=== PATIENT | female | born 1960 | race Caucasian/White ===

== ENCOUNTER 2022-01-29 08:00 | Outpatient (RCR) | payer OTHER, SELFPAY ==
--- NOTE | 2022-01-25 11:20 | HP.OTEVAL ---
Patient's Visit Information PREETHI MARTINEZ is a 61 year old F, referred to Occupational Therapy by ROEL Arndt, with a diagnosis of Laceration of left thumb. Date of Evaluation: 01/25/22 Occupational Therapist: Jen Madden, SCOOTER/Haile, CHT - Subjective Pt. is a 61 y/o female who works part-time at [employer]. She is right hand dominant. She cut her left thumb with box knife at work on 01-14-22, she is not using workmans comp. [facility] and [facility]. Her stitches were removed. She reported that she hit L thumb at work yesterday 01-24-22 and it opened back up. During the evaluation it was not seeping or bleeding. Pt. is motivated to return to [facility]. - ADLs Dressing: Bra Comments: fastener Comments: R handed dominant. She verbalized difficulty with donning bra clasp. She also has a horse that she cares for. - ROM Shoulder: B WFL Elbow: B WFL Forearm: B WFL Wrist: B WFL CMC: flexion R 10* L 3* MP: flexion R 35* L 40* IP: flexion R 60* L 35* ROM Comments: -35* extensor lag of IP L thumb. She can complete composite fist. - Strength Shoulder: good Elbow: good Forearm: good An/Syq 13 Nav/C2 Operator: R 50# Lateral Pinch: R 12# Tripod Pinch: R12# Tip-to-Tip Pinch: R 10# Strength Comments: Did not assess L outdoor adventure guides or pinch strength secondary to prevention of reopening laceration. - Sensation Thumb: L thumb past IP is numb Stereognosis: Normal - Right Kinesthesia: Normal - Right Proprioception: Normal - Right Sensation Comments: Pt. reports L thumb numbness distal to laceration proximal side ulnar side. Pt. reported all other fingers are normal. Assess L thumb sensation using [place] [employer] monofilament at a later date, secondary to numbness to S/OT touch. - Transfers Transfers: Pt. independent with functional mobility. - Quick DASH-Disab of Arm,Shoulder& Hand Quick DASH Score: 20.4525 - Goals Comment: splinting all day except for showers to decrease ext. lag Goal:Daily scar massage when approriate: Yes Comment: to massage around scar, not across until closed fully. Goal:No pain with affected hand use: Yes Goal:Full use of affected hand in daily activities including: Yes - Rehabilitation General Assessment: Pt. was referred to OT services for a laceration of left thumb, strain of extensor muscle, fascia and tendon by ROEL Alonso. Pt arrives 1 week and 4 day post injury and repair. pt demo with extensor lag of L thumb IP joint which causes mild difficulty with ADL tasks, IADL's, and work. Pt. would benefit from skilled OT services 1-2x week for 6 weeks -for custom orthosis, scar management, and exercises for increased extension of L thumb. therapy session was directly supervised and doc. reviewed and approved by Jen Madden OTR/L,CHT Rehabilitation Potential: Good - Anticipated Interventions Early Active Motion, A/AAROM/PROM, Strengthening, Scar Care, Massage, Wound Care, Modalities, Orthoses, Joint Protection/Energy Conservation, Ergonomic Education, Fine Motor Coord/Jose, Education re assistive Equipment, Education re Diagnosis, Education re Skin Care and Precautions, Education re Self Massage Techniques, Home Program Other Interventions: Suggested wearing gloves at work and when doing yard work, horse care to protect laceration site. - Visit Plan Frequency: 2x /Week Duration: 6 Weeks General Plan: Recommended wearing orthotic and protective glove for work. Wear orthotic all day remove for shower. Reviewed scar massage around laceration, not across as it is not closed. Just splint for now, provide extensor exercises at a later date. See pt. next week to assess orthotic needs. TEXT: Thank you for the opportunity to evaluate your patient. For Medicare and Medicare HMO plans, please review the plan of care and approve it. It will need to be FAXED BACK to us at [phone] for Medicare purposes. Please let me know if there are questions or concerns regarding this plan of care. Physician Signature: Date:
--- NOTE | 2022-07-09 13:28 | HP.OTDCNRP_ITS ---
PREETHI AMRTINEZ was seen in my office for initial evaluation on 01/25/22. The following Plan of Care was established for this patient: Initial Frequency: 2x /Week Initial Duration: 6 Weeks Plan: recommending pt. seek a 2nd opinion from a hand surgeon at [facility] Dr. Edmondson. Provided pt. with phone number. Anticipated Interventions: Early Active Motion, A/AAROM/PROM, Strengthening, Scar Care, Massage, Wound Care, Modalities, Orthoses, Joint Protection/Energy Conservation, Ergonomic Education, Fine Motor Coord/Jose, Education re assistive Equipment, Education re Diagnosis, Education re Skin Care and Precautions, Education re Self Massage Techniques, Home Program Other Interventions: Suggested wearing gloves at work and when doing yard work, horse care to protect laceration site. This patient was last seen in our office 01/29/22. Pertinent comments regarding their Occupational therapy will appear below: pt was seen for 2 OT session with laceration of thumb- pt did not return after 2nd visit due to limited extension of IP - pt was seeing hand surgeon. pt d/c At this point I will be discontinuing this patient from occupational therapy. I would be happy to see this patient again in the future if found appropriate by the physician. Thank you! Jen Madden, OTR/L, CHT
== END 2022-01-29 19:00 | disposition home or self-care (01) ==
LOC: OT 08:00
PROVIDERS: Referring Provider Physician Assistant Surgical; Visit Provider Physician Assistant Surgical
DX: S61.012D Laceration without foreign body of left thumb without damage to nail, subsequent encounter (principal); S66.212D Strain of extensor muscle, fascia and tendon of left thumb at wrist and hand level, subsequent encounter; X58.XXXD Exposure to other specified factors, subsequent encounter
CPT/HCPCS: 97165; 97530; 97760

== ENCOUNTER 2022-04-02 10:00 | Outpatient (RCR) | payer OTHER, SELFPAY ==
--- NOTE | 2022-03-19 15:56 | HP.OTEVAL ---
Patient's Visit Information PREETHI MARTINEZ is a 61 year old F, referred to Occupational Therapy by Dr. Kvng Edmondson DO, with a diagnosis of EPL laceration. Date of Evaluation: 03/19/22 Occupational Therapist: Jen Madden, OTElsa/Haile, CHT - Subjective This 61 year old female was seen for OT eval with dx of left EPL laceration zone 3. 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 pt underwent sx on February 12, 2022. after sx surgical cast on pt states she was in this for 2 weeks and than new cast and was on until March 08 and now is here for therapy eval. pt is 5 weeks s/p pt arrives without splint on or brace that was given by her dr. pt states she does protect the wound with a bandage when she is working-. Pt C-9 approval from workers comp.- and therapy approved was 03-11-22, received order for approved therapy on 03-14-22 - pts availability to be seen was 03-19-22. - Pain left thumb 1 Pain Intensity Range: 3 - Objective pt demo with open wound 1cmx.5cm in size - ROM CMC: right 0 left 0 MP: right -5/60 left -20/50 IP: right 0/60 left -10/30 ROM Comments: pt demo good ROM from her zone III EPL repair. all other ROM is WNL - Strength Heater Planer Operator: right 55# left NT Lateral Pinch: right 8# left NT Tripod Pinch: right 8# left NT - Sensation Sensation Comments: pt states over incision area slightly numb but able to feel ( states its better) - Quick DASH-Disab of Arm,Shoulder& Hand Quick DASH Score: 35.0000 - Goals Goal:100% adherence to protocol: Yes Comment: EPL zone III protocol Goal:Daily scar massage when approriate: Yes Goal:ROM equal to unaffected hand: Yes Goal:Heater Planer Operator/Pinch strength at least 75% of unaffected hand: Yes Goal:No pain with affected hand use: Yes Goal:Full use of affected hand in daily activities including: Yes Goal:Decrease scar hypersensitivity: Yes - Rehabilitation General Assessment: pt arrives to OT 5 weeks s/p from a EPL repair. Pt demo with open wound limited ROM and use of left hand with ADLs and IADls. Pt has open wound on dorsal side of thumb- pt limited with use of left hand with ADLs and IADLs- pt would benefit from skilled OT services 2-3x week for 6 weeks. Today therapist ed. pt on wound mtg and cleaning followed with scar mobilization and AROM. pt demo understanding and agree to POC. Rehabilitation Potential: Good - Anticipated Interventions A/AAROM/PROM, Strengthening, Scar Care, Desensitization, Wound Care, Modalities, Orthoses, Joint Protection/Energy Conservation, Fine Motor Coord/Jose, Education re assistive Equipment, Education re Diagnosis - Visit Plan Frequency: 2-3x /Week Duration: 6 Weeks TEXT: Thank you for the opportunity to evaluate your patient. For Medicare and Medicare HMO plans, please review the plan of care and approve it. It will need to be FAXED BACK to us at [phone] for Medicare purposes. Please let me know if there are questions or concerns regarding this plan of care. Physician Signature: Date:
--- NOTE | 2022-07-16 16:58 | HP.OTDCSUM_ITS ---
It has been my pleasure to treat PREETHI MARTINEZ under orders from Dr. Kvng Edmondson, DO, for the diagnosis of EPL laceration for a total of 4 visit(s). Please see the following information for a summary of their discharge status. Objective/Function: IP flexion 40*. opposition. RA 60. noted IP ext is N but noted scar adhesions with movement. wound size is shrinking. 1cm in diameter. 1/2 cm length x width Patient Goals: Regain Mobility, Regain Strength, Use Hand/Wrist/Arm Normally Again Goal:100% adherence to protocol: Yes Goal:Daily scar massage when approriate: Yes Goal:ROM equal to unaffected hand: Yes Goal:Rd Mechanical Engineer/Pinch strength at least 75% of unaffected hand: Yes Goal:No pain with affected hand use: Yes Goal:Full use of affected hand in daily activities including: Yes Goal:Decrease scar hypersensitivity: Yes Plan: continue per POC. pt will be 8 weeks next session. will initiate BTE If there are questions or concerns regarding this patient's occupational therapy, please fell free to call me at [phone]. Thank you for the referral of this patient. Sincerely, Jen Madden, OTR/L, CHT
== END 2022-04-02 19:00 | disposition home or self-care (01) ==
LOC: OT 10:00
PROVIDERS: Referring Provider Student in an Organized Health Care Education/Training Program; Visit Provider Student in an Organized Health Care Education/Training Program
DX: S66.222D Laceration of extensor muscle, fascia and tendon of left thumb at wrist and hand level, subsequent encounter (principal); X58.XXXD Exposure to other specified factors, subsequent encounter
CPT/HCPCS: 97110; 97140; 97166; 97530

== ENCOUNTER → 2024-12-07 | Outpatient (CLI) | payer MEDICARE, SELFPAY ==
[2024-12-07 13:06] LABS: Anion Gap 11 (5-15); BUN 16 mg/dL (4-19); BUN/Creat Ratio 18.4 RATIO (10-20); Calcium,Total 9.4 mg/dL (7.6-11.0); Carbon Dioxide 23.6 mmol/L (21.0-32.0); Chloride 104 mmol/L (98-108); Creatinine, Serum 0.86 mg/dL (0.70-1.20); EST Glomerular Filtration Rate 75 (>60); Glucose 96 mg/dL (70-99); Potassium 4.2 mmol/L (3.3-5.1); Sodium Level 138 mmol/L (133-145)
[2024-12-07 14:18] LABS: Cholesterol 244 mg/dL (<=200); High Density Lipoprotein 82 mg/dL; Low Density Lipoprotein Calc. 147 mg/dL; Triglycerides 77 mg/dL; Very Low Density Lipoprotein 15 mg/dL (5-40); cholesterol:hdl ratio screen 2.98
== END | disposition home or self-care (01) ==
LOC: VSLAB 11:06
PROVIDERS: PCP Family Medicine; Visit Provider Family Medicine
DX: Z00.01 Encounter for general adult medical examination with abnormal findings (principal); Z13.1 Encounter for screening for diabetes mellitus; Z13.6 Encounter for screening for cardiovascular disorders
CPT/HCPCS: 36415; 80048; 80061